=== PATIENT | male | born 1990 | race Caucasian/White ===

== ENCOUNTER 2021-08-04 10:15 | Emergency (ER) | payer OTHER ==
[2021-08-04 10:38] LABS: RAPID STREP SCREEN Negative (Negative)
[2021-08-04] MEDS ORDERED: KETOROLAC 60 MG/2 ML VIAL IM STA (11:44)
--- NOTE | 2021-08-04 11:48 | ED Physician Documentation ---
History of Present Illness - Stated complaint Stated Complaint: HEADACHE, SORE THROAT - Chief complaint Chief Complaint: Heent - Additonal information Additional information: 31-year-old male presents emergency department for evaluation of headache and sore throat. Symptoms began about 4 to 5 days ago. He does endorse some noise and light sensitivity with a headache but denies any previous history of headaches or migraines. This was not sudden onset. No fevers. The morning following the headache he began to get a sore throat. No cough or exudate. He has taken Motrin and Tylenol at home with some resolution of symptoms. Called the [employer] hotline this morning who advised him to come to the ER. Fully vaccinated for COVID-19. No recent travel. No sick contacts that are known to him. Review of Systems Constitutional: denies: Fever, Chills Eyes: reports: Reviewed and negative Ears: reports: Reviewed and negative Nose: denies: Rhinorrhea / runny nose, Congestion Throat: reports: Sore throat Cardiac: reports: Reviewed and negative Respiratory: reports: Reviewed and negative GI: reports: Reviewed and negative : denies: Dysuria, Frequency, Hesitancy Skin: reports: Reviewed and negative Musculoskeletal: reports: Reviewed and negative Neurologic: reports: Headache. denies: Generalized weakness, Focal weakness, Numbness, Syncope, Seizure, Confused, Head injury Psychiatric: reports: Reviewed and negative PD PAST MEDICAL HISTORY - Past Medical History Past Medical History: No - Past Surgical History Past Surgical History: Yes - Present Medications Home Medications: Ambulatory Orders Medication Instructions Recorded Confirmed No Known Home Medications 08/04/21 08/04/21 - Allergies Allergies/Adverse Reactions: Allergies Allergy/AdvReac Type Severity Reaction Status Date / Time No Known Drug Allergies Allergy Verified 08/04/21 10:24 - Social History Does the pt smoke?: No Smoking Status: Never smoker Does the pt drink ETOH?: Yes Does the pt have substance abuse?: No - Immunizations Immunizations are current?: Yes PD ED PE NORMAL - General General: Alert and oriented X 3, No acute distress, Well developed/nourished - HEENT HEENT: Atraumatic, Ears normal, Moist mucous membranes, Pharynx benign - Neck Neck: Supple, no meningeal sign, No adenopathy - Cardiac Cardiac: RRR, No murmur - Abdomen Abdomen: Normal bowel sounds, Soft - Back Back: No CVA TTP, No spinal TTP - Extremities Extremities: No deformity, No tenderness to palpate - Neuro Neuro: Alert and oriented X 3, 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 Eye Opening: Spontaneous Motor: Obeys Commands Verbal: Oriented GCS Score: 15 - Psych Psych: Normal mood Results - Vitals Vitals: Vital Signs - 24 hr 08/04/21 08/04/21 10:20 10:54 Temperature 36.6 C Heart Rate 77 79 Respiratory 16 16 Rate Blood Pressure 150/97 H 138/93 H O2 Saturation 100 99 Oxygen O2 Source Room air - Labs Labs: Laboratory Tests 08/04/21 10:24 Group A Strep Rapid Negative PD MEDICAL DECISION MAKING - ED course Complexity details: reviewed results, considered differential, d/w patient ED course: This is a well-appearing 31-year-old male who presents the emergency department for evaluation of a headache. He also is endorsing a sore throat for the last 3 to 4 days. No associated fevers. Headache was not sudden onset. No trauma or anticoagulation. No suspicion for infectious etiology, sah. He has had some mild to moderate relief of symptoms using Tylenol and ibuprofen. Rapid strep is negative. Respiratory PCR is pending. I do suspect that he likely has a viral URI. Here in the emergency department he is administered Toradol. Will recommend 24 hours of fluids and rest at home. Defer antibiotics unless culture is positive. Otherwise emergent return precautions discussed. Departure - Departure Disposition: 01 Home, Self Care Clinical Impression: Sore throat (viral) Headache Qualifiers: Headache type: unspecified Headache chronicity pattern: acute headache Intractability: not intractable Qualified Code(s): R51.9 - Headache, unspecified Condition: Stable Record reviewed to determine appropriate education?: Yes Instructions: ED Pharyngitis Viral, ED Cephalgia Unspecified Comments: Mati as we discussed at the bedside I suspect that the cause of your headache and sore throat is most likely a virus. You do have a viral panel pending and we will notify you only if there are positive results. Your strep testing is negative. We will defer antibiotics unless a culture is positive. In general I do recommend that you take 500 mg of Tylenol every 4-6 hours or 600 mg of ibuprofen with food for headache. Please drink plenty of fluids. I do recommend 24 hours of rest. If at any point you find that your symptoms are worsening, you have any fainting episodes sudden severe chest pain slurred speech droopy face or uncontrolled vomiting then please return immediately to the ER for a second evaluation.
[2021-08-04 12:38] VITALS: BP 146/86
== END 2021-08-04 12:40 | disposition home or self-care (01) ==
LOC: ED 10:15
DX: J02.9 Acute pharyngitis, unspecified (principal); R51.9 Headache, unspecified; Z20.822 Contact with and (suspected) exposure to COVID-19
CPT/HCPCS: 87070; 87430; 96372; 99282; 99283